=== PATIENT | female | born 1960 | race Hispanic/Latino ===

== ENCOUNTER 2024-05-22 10:47 | Observation (INO) | payer BC ==
[2024-05-22] VITALS (10 sets, daily range): BP systolic 119–184; BP diastolic 53–75; PULSE 68–78; RESP 16–20; TEMP 97.3–98.4; O2SAT 97–100
[~2024-05-22] VITALS: Ht 162.6 cm; Wt 55.3 kg
[2024-05-22 11:25] LABS: BASOPHILS % 0.7 % (0.0-1.0); EOSINOPHILS % 0.5 % (0.0-6.0); HEMOGLOBIN 6.8 g/dL (12.0-16.0); LYMPHOCYTES # (AUTO) 3.2 (1.0-3.2); LYMPHOCYTES % 52.9 % (18.0-39.1); MEAN CORPUSCULAR HGB CONC 30.2 g/dL (31-35); MONOCYTES # (AUTO) 0.8 (0.2-0.8); MONOCYTES % 12.9 % (4.4-11.3); NEUTROPHILS % 32.7 % (38.7-80.0); PLATELET COUNT 438 x10e3/uL (140-360); RED BLOOD COUNT 2.96 x10e6/uL (3.6-5.1); WHITE BLOOD COUNT 5.96 x10e3/uL (4.8-10.8)
[2024-05-22 11:27] LABS: HEMATOCRIT 22.5 % (34.2-44.1)
[2024-05-22 11:39] LABS: ANION GAP 14.9 mmol/L (8-16); CALCIUM 8.7 mg/dL (8.4-10.2); CREATININE, SERUM 1.29 mg/dL (0.57-1.11); POTASSIUM 3.9 mmol/L (3.5-5.1)
[2024-05-22] MEDS ORDERED: LIDOCAINE 4% PATCH TP PRN (15:00)
[2024-05-22] MEDS ORDERED: SIMETHICONE 80 MG CHEW PO PRN (15:00)
[2024-05-22] MEDS ORDERED: BENZONATATE 100 MG CAP PO PRN (15:00)
[2024-05-22] MEDS ORDERED: DIPHENHYDRAMINE HCL 25 MG CAP PO PRN (15:00)
[2024-05-22] MEDS ORDERED: ALBUTEROL/IPRATROPIUM 3 ML NEB NEB PRN (15:00)
[2024-05-22] MEDS ORDERED: DOCUSATE SODIUM 100 MG CAP PO PRN (15:00)
[2024-05-22] MEDS ORDERED: DEXTROSE 50% SYRINGE 50 ML IV PRN (15:00)
[2024-05-22] MEDS ORDERED: POTASSIUM CHLORIDE 20 MEQ TAB CR PO PRN (15:00)
[2024-05-22 15:25] LABS: % IRON SATURATION 17 % (15-50); IRON 45 ug/dL (50-170); TOTAL IRON BINDING CAPACITY 272 ug/dL (261-478); TRANSFERRIN 194 mg/dL (180-382)
[2024-05-22 15:59] LABS: FOLATE 7.2 ng/mL (7.0-15.4)
[2024-05-22] MEDS ORDERED: METOPROLOL TAR100 MG PO (16:18)
[2024-05-22] MEDS ORDERED: ENBREL50 MG/1 M1 PO (16:22)
[2024-05-22] MEDS: METOPROLOL TARTRATE 50 MG TAB PO SCH (20:43)
[2024-05-23] VITALS (10 sets, daily range): BP systolic 168–194; BP diastolic 66–80; PULSE 68–102; RESP 17–18; TEMP 97.4–98.8; O2SAT 96–100
[2024-05-23] MEDS: HYDRALAZINE HCL 20 MG/ML VIAL IV PRN (04:54)
[2024-05-23] MEDS: ONDANSETRON HCL INJ 2MG/ML 2ML 2 MG/ML VIAL IV PRN (06:29)
[2024-05-23 06:41] LABS: BASOPHILS # (AUTO) 0.1 (0.0-0.1); BASOPHILS % 0.8 % (0.0-1.0); EOSINOPHILS % 0.6 % (0.0-6.0); HEMATOCRIT 25.1 % (34.2-44.1); HEMOGLOBIN 7.8 g/dL (12.0-16.0); LYMPHOCYTES # (AUTO) 3.1 (1.0-3.2); LYMPHOCYTES % 46.2 % (18.0-39.1); MEAN CORPUSCULAR HEMOGLOBIN 23.9 pg (28-32); MEAN CORPUSCULAR HGB CONC 31.1 g/dL (31-35); MONOCYTES # (AUTO) 1.1 (0.2-0.8); MONOCYTES % 16.4 % (4.4-11.3); NEUTROPHILS # (AUTO) 2.4 (2.1-6.9); NEUTROPHILS % 35.7 % (38.7-80.0); PLATELET COUNT 364 x10e3/uL (140-360); RED BLOOD COUNT 3.26 x10e6/uL (3.6-5.1); RED CELL DISTRIBUTION WIDTH 15.9 % (11.7-14.4); WHITE BLOOD COUNT 6.64 x10e3/uL (4.8-10.8)
[2024-05-23 07:02] LABS: ANION GAP 14.6 mmol/L (8-16); CALCIUM 8.7 mg/dL (8.4-10.2); CREATININE, SERUM 1.05 mg/dL (0.57-1.11); POTASSIUM 3.6 mmol/L (3.5-5.1)
[2024-05-23 07:28] LABS: FERRITIN 82.27 ng/mL (4.63-204.00)
[2024-05-23] MEDS: SODIUM CHLORIDE 0.9% 250ML 250 ML ONE (08:17)
[2024-05-23] MEDS: SODIUM CHLORIDE 0.9% 250ML 250 ML IV ONE (08:17)
[2024-05-23 08:42] LABS: BASOPHILS % (MANUAL) 1 % (0-1.5); EOSINOPHILS % (MANUAL) 1 % (0-7); LYMPHOCYTES % (MANUAL) 48 % (19-48); MONOCYTES % (MANUAL) 18 % (3.4-9.0); NEUTROPHILS % (MANUAL) 32 % (40-74)
[2024-05-23 08:44] LABS: ANISOCYTOSIS SLIGHT; MICROCYTOSIS SLIG; PLATELET ESTIMATE SLIGHTLY INCREASED; PLATELET MORPHOLOGY COMMENT NORMAL; RBC MORPHOLOGY COMMENT NORMAL
[2024-05-23] MEDS: PANTOPRAZOLE SOD 40 MG TABEC PO SCH (10:27)
[2024-05-23] MEDS: ACETAMINOPHEN 325 MG TAB PO PRN (10:28)
[2024-05-23] MEDS: IRON SUCROSE 100 MG in SODIUM CHLORIDE 0.9% 100 ML IV SCH (10:29)
[2024-05-23] MEDS ORDERED: FERROUS SULFAT325 MG PO (16:30)
[2024-05-23] MEDS ORDERED: NIFEDIPINE ER30 M1 PO (16:40)
[2024-05-23] MEDS: NIFEDIPINE CR 30 MG TAB PO ONE (17:17)
[2024-05-23] MEDS: MELATONIN 5 MG TABLET PO PRN (22:13)
[2024-05-24] VITALS (8 sets, daily range): BP systolic 151–173; BP diastolic 57–78; PULSE 84–104; RESP 17–20; TEMP 98.3–99.2; O2SAT 96–99
[2024-05-24 06:32] LABS: HEMATOCRIT 27.3 % (34.2-44.1); HEMOGLOBIN 8.4 g/dL (12.0-16.0)
[2024-05-24] MEDS: NIFEDIPINE CR 30 MG TAB PO ONE (11:55)
[2024-05-24] MEDS ORDERED: AMOXICILLIN500 MG PO (15:26)
[2024-05-26 08:13] LABS: ENDOMYSIAL ANTIBODIES, IGA Negative (Negative)
[2024-05-26] MEDS ORDERED: NIFEDIPINE CR 30 MG TAB PO SCH (09:00)
[2024-05-26 14:39] LABS: IMMUNOGLOBULIN A 510 mg/dL (87-352); TISSUE TRANSGLUTAMINASE IGA AB <2 U/mL (0-3)
== END 2024-05-24 16:10 | disposition home or self-care (01) ==
LOC: ER 10:51 → ERHOLD 11:33 → MED/SURG3 15:10
PROVIDERS: ADMIT Internal Medicine; ATTEND Internal Medicine
DX: D50.9 Iron deficiency anemia, unspecified (principal); I16.0 Hypertensive urgency; K21.9 Gastro-esophageal reflux disease without esophagitis; H66.92 Otitis media, unspecified, left ear; M06.9 Rheumatoid arthritis, unspecified
CPT/HCPCS: 36415 ×3; 36430; 80048 ×2; 82607; 82728; 82746; 82784; 83516; 83540; 84466; 85014; 85018; 85025 ×2; 86256; 86850; 86900; 86920; 94799 ×3; 96411; 99284; G0378 ×3; J0360; J1756 ×2; J2405; J2470 ×2; J7050 ×3; P9016